=== PATIENT | female | born 1990 | race Two or more races ===

== ENCOUNTER 2017-01-05 08:08 | Inpatient (IN) | payer MEDICAID ==
[~2017-01-05] VITALS: Ht 162.6 cm; Wt 105.0 kg
[~2017-01-05 08:08] MED LIST: IBUP-1484 PO
[2017-01-05] MEDS ORDERED: OXYTOCIN 30U/ 0.9% NaCL 500ML 500 ML IV ONE (08:38)
[2017-01-05] MEDS ORDERED: D5%-LACTATED RINGERS 1,000 ML IV SCH (08:38)
[2017-01-05 08:41] VITALS: BP 115/73
[2017-01-05 09:00] LABS: HEMOGLOBIN 11.1 g/dL (11.7-16.4); WHITE BLOOD COUNT 8.1 x10^3/uL (3.4-10)
[2017-01-05] MEDS ORDERED: ONDANSETRON 2MG/ML, 2ML IVPush PRN ×2 (09:00→19:00)
[2017-01-05] MEDS ORDERED: FENTANYL PF 100 MCG/2ML IV PRN (09:00)
[2017-01-05] MEDS ORDERED: PLEASE ENTER HEIGHT AND WEIGHT MC SCH (09:00)
[2017-01-05] MEDS ORDERED: FENTANYL PF 100 MCG/2ML IVPush PRN (09:00)
[2017-01-05] MEDS ORDERED: TERBUTALINE 1 MG/ML, 1ML IVPush PRN (09:00)
[2017-01-05] MEDS ORDERED: PREN-3 PO (09:06)
[2017-01-05] MEDS ORDERED: MISOPROSTOL 25 MCG TABLET ONE ×2 (09:40→13:38)
[2017-01-05] MEDS ORDERED: MISOPROSTOL 25 MCG TABLET VG PRN (10:00)
[2017-01-05] MEDS ORDERED: NEWBORN KIT ONE (10:33)
[2017-01-05] MEDS ORDERED: LIDOCAINE 1%, 20ML ONE (10:33)
[2017-01-05] MEDS ORDERED: MISOPROSTOL 200 MCG TABLET ONE (13:38)
[2017-01-05] MEDS: LACTATED RINGERS 1,000 ML IV SCH ×2 (16:13→16:59)
[2017-01-05] MEDS ORDERED: BUPIVACAINE 0.25% ONE (16:30)
[2017-01-05] MEDS ORDERED: FENTANYL/BUPIV./NS/PF 250 ML EPIDCONT ONE (16:30)
[2017-01-05] MEDS ORDERED: LIDOCAINE/PF 1.5%-EPI 1:200K, 30ML ONE (16:33)
[2017-01-05] MEDS ORDERED: OXYTOCIN 30U/ 0.9% NaCL 500ML 500 ML ONE ×2 (17:43→22:18)
[2017-01-05] MEDS ORDERED: NALOXONE 0.4 MG/ML, 1ML IVPush PRN (19:00)
[2017-01-05] MEDS ORDERED: LACTATED RINGERS 1,000 ML IVBOLUS PRN (19:00)
[2017-01-05] MEDS ORDERED: FENTANYL/BUPIV./NS/PF 250 ML EPIDCONT SCH (19:00)
[2017-01-05] MEDS ORDERED: DIPHENHYDRAMINE 50 MG/ML, 1ML IVPush PRN (19:00)
[2017-01-05] MEDS ORDERED: LACTATED RINGERS 1,000 ML IV SCH (19:00)
[2017-01-05] MEDS ORDERED: EPHEDRINE 50 MG/ML, 1ML IVPush PRN (19:00)
[2017-01-05] MEDS ORDERED: OXYTOCIN 30U/ 0.9% NaCL 500ML 500 ML IV PRN (22:16)
[2017-01-06] MEDS ORDERED: OXYTOCIN 30U/ 0.9% NaCL 500ML 500 ML ONE (05:35)
[2017-01-06] MEDS ORDERED: OXYTOCIN 30U/ 0.9% NaCL 500ML 500 ML IV SCH ×2 (05:36)
[2017-01-06] MEDS ORDERED: CALCIUM CARBONATE 500 MG TAB.CHEW PO PRN (06:00)
[2017-01-06] MEDS ORDERED: OXYTOCIN 10 UNITS/ML, 1ML IM PRN (06:00)
[2017-01-06] MEDS ORDERED: OXYcodone IR 5MG TABLET PO PRN (06:00)
[2017-01-06] MEDS ORDERED: MAGNESIUM HYDROXIDE 8%, 30ML UDC PO PRN (06:00)
[2017-01-06] MEDS ORDERED: ACETAMINOPHEN 325 MG TABLET PO PRN (06:00)
[2017-01-06] MEDS ORDERED: ONDANSETRON 2MG/ML, 2ML IV PRN (06:00)
[2017-01-06] MEDS ORDERED: METHYLERGONOVINE 0.2 MG/ML IM PRN (06:00)
[2017-01-06] MEDS ORDERED: IBUPROFEN 800 MG TABLET ONE (06:41)
[2017-01-06] MEDS ORDERED: OXYcodone/APAP 5/325MG TABLET ONE (06:41)
[2017-01-06] MEDS: OXYcodone/APAP 5/325MG TABLET PO PRN ×3 (06:44→20:50)
[2017-01-06] MEDS: IBUPROFEN 800 MG TABLET PO PRN ×2 (06:44→14:52)
[2017-01-06 07:05] VITALS: BP 109/64
[2017-01-06] MEDS: PRENATAL VIT/IRON/FA 1 EACH TABLET PO SCH (09:00)
[2017-01-06 12:00] VITALS: BP 116/70
[2017-01-06 16:00] VITALS: BP 110/64
[2017-01-06 20:06] LABS: HEMATOCRIT 26.7 % (34.6-47.8); HEMOGLOBIN 8.9 g/dL (11.7-16.4); WHITE BLOOD COUNT 12.5 x10^3/uL (3.4-10)
[2017-01-06 20:40] VITALS: BP 102/58
[2017-01-06] MEDS: DOCUSATE 100 MG CAPSULE PO PRN (20:50)
[2017-01-07 00:05] VITALS: BP 99/53
[2017-01-07] MEDS: IBUPROFEN 800 MG TABLET PO PRN ×2 (00:12→07:56)
[2017-01-07 03:45] VITALS: BP 90/57
[2017-01-07] MEDS: OXYcodone/APAP 5/325MG TABLET PO PRN ×2 (03:47→07:56)
[2017-01-07] MEDS ORDERED: OXYC-302 PO (06:45)
[2017-01-07] MEDS ORDERED: IBUP-1222 PO (06:47)
[2017-01-07] MEDS ORDERED: FERR325T18 PO (06:48)
[2017-01-07] MEDS ORDERED: FERR-36 PO (06:48)
[2017-01-07] MEDS ORDERED: DOCU-131 PO (06:49)
[2017-01-07 07:44] VITALS: BP 111/71
[2017-01-07] MEDS: PRENATAL VIT/IRON/FA 1 EACH TABLET PO SCH (07:56)
[2017-01-07] MEDS: DOCUSATE 100 MG CAPSULE PO PRN (07:57)
== END 2017-01-07 14:03 | disposition home or self-care (01) | DRG 775 ==
LOC: LDIP 08:08 → 2NW 01-06 08:37
PROVIDERS: ADMIT Obstetrics & Gynecology; ATTEND Obstetrics & Gynecology
PROC: 10E0XZZ Delivery of Products of Conception, External Approach (ICD-10-PCS; principal; 2017-01-06)
PROC: 3E0R3BZ Introduction of Anesthetic Agent into Spinal Canal, Percutaneous Approach (ICD-10-PCS; 2017-01-06)
PROC: 00HU33Z Insertion of Infusion Device into Spinal Canal, Percutaneous Approach (ICD-10-PCS; 2017-01-06)
DX: O80 Encounter for full-term uncomplicated delivery (principal); Z37.0 Single live birth; Z3A.40 40 weeks gestation of pregnancy
CPT/HCPCS: 36415; 59200; 85025; 86850; 86900; J3490; J2590; J3010; J7120

== ENCOUNTER 2018-09-05 14:51 | Inpatient (IN) | payer BC ==
[~2018-09-05] VITALS: Ht 162.6 cm; Wt 92.0 kg
[~2018-09-05 14:51] MED LIST changes: +DOCU-131 PO; +FERR-51 PO; +FERR325T18 PO; +IBUP-1222 PO; +OXYC-302 PO; +PREN-3 PO
[2018-09-05 15:34] VITALS: BP 112/62
[2018-09-05] MEDS ORDERED: OXYTOCIN 30U/ 0.9% NaCL 500ML 500 ML IV PRN (15:56)
[2018-09-05] MEDS ORDERED: D5%-LACTATED RINGERS 1,000 ML IV SCH (15:56)
[2018-09-05] MEDS ORDERED: LACTATED RINGERS 1,000 ML IV SCH (15:56)
[2018-09-05] MEDS ORDERED: OXYTOCIN 30U/ 0.9% NaCL 500ML 500 ML IV ONE (15:56)
[2018-09-05] MEDS ORDERED: FENTANYL PF 100 MCG/2ML IVPush PRN (16:00)
[2018-09-05] MEDS ORDERED: MISOPROSTOL 200 MCG TABLET PR PRN (16:00)
[2018-09-05] MEDS ORDERED: ACETAMINOPHEN 325 MG TABLET PO PRN (16:00)
[2018-09-05] MEDS ORDERED: MISOPROSTOL 200 MCG TABLET VG SCH (16:00)
[2018-09-05] MEDS ORDERED: ONDANSETRON 2MG/ML, 2ML IVPush PRN (16:00)
[2018-09-05] MEDS ORDERED: METOCLOPRAMIDE 5 MG/ML, 2ML IVPush PRN (16:00)
[2018-09-05] MEDS ORDERED: OXYcodone IR 5MG TABLET PO PRN ×2 (16:00)
[2018-09-05] MEDS ORDERED: RHOGAM FROM BLOOD BANK 1 NOTE EA IM/IV PRN (16:00)
[2018-09-05] MEDS ORDERED: MISOPROSTOL 200 MCG TABLET ONE ×2 (16:27→17:32)
[2018-09-05 16:35] LABS: BASOPHILS # (AUTO) 0.01 x10^3/uL (0-0.1); BASOPHILS % (AUTO) 0 % (0-1); EOSINOPHILS # (AUTO) 0.02 x10^3/uL (0-0.4); EOSINOPHILS % (AUTO) 0 % (1-7); LYMPHOCYTES # (AUTO) 1.56 x10^3/uL (1-3.4); LYMPHOCYTES % (AUTO) 23 % (22-44); MD NO; MEAN CORPUSCULAR HEMOGLOBIN 29.4 pg (27.0-34.8); MEAN CORPUSCULAR VOLUME 89.1 fL (80-100); MONOCYTES # (AUTO) 0.33 x10^3/uL (0.2-0.8); MONOCYTES % (AUTO) 5 % (2-9); NEUTROPHILS # (AUTO) 4.97 x10^3/uL (1.8-6.8); NEUTROPHILS % (AUTO) 72 % (42-75); PLATELET COUNT 241 x10^3/uL (130-400); RED CELL DISTRIBUTION WIDTH 15.2 % (9.6-15.2)
[2018-09-05] MEDS ORDERED: LIDOCAINE 1%, 20ML ONE (17:32)
[2018-09-05] MEDS ORDERED: OXYTOCIN 30U/ 0.9% NaCL 500ML 500 ML ONE ×2 (17:32→23:15)
[2018-09-05 17:36] LABS: AMPHETAMINE SCREEN, URINE Negative (Negative); BARBITURATE SCREEN, URINE Negative (Negative); BENZODIAZEPINE SCREEN, URINE Negative (Negative); CANNABINOID SCREEN, URINE Negative (Negative); COCAINE SCREEN, URINE Negative (Negative); METHADONE SCREEN, URINE Negative (Negative); OPIATE SCREEN, URINE Negative (Negative)
[2018-09-06] MEDS ORDERED: ZOLPIDEM 5MG TABLET ONE (00:26)
[2018-09-06] MEDS ORDERED: IBUPROFEN 600 MG TABLET ONE ×3 (00:26→07:34)
[2018-09-06] MEDS: IBUPROFEN 600 MG TABLET PO PRN ×2 (00:29→07:32)
[2018-09-06] MEDS ORDERED: ZOLPIDEM 5MG TABLET PO PRN (00:30)
[2018-09-06 07:15] VITALS: BP 102/56
[2018-09-06] MEDS ORDERED: OXYcodone IR 5MG TABLET ONE (07:22)
[2018-09-06] MEDS ORDERED: SIMETHICONE 125 MG CHEW TAB PO ONE (08:00)
== END 2018-09-06 10:14 | disposition home or self-care (01) | DRG 806 ==
LOC: LDIP 14:51
PROVIDERS: ADMIT Obstetrics & Gynecology; ATTEND Obstetrics & Gynecology
PROC: 10E0XZZ Delivery of Products of Conception, External Approach (ICD-10-PCS; principal; 2018-09-05)
PROC: 3E0P7VZ Introduction of Hormone into Female Reproductive, Via Natural or Artificial Opening (ICD-10-PCS; 2018-09-05)
DX: O03.9 Complete or unspecified spontaneous abortion without complication (principal); O36.4XX0 Maternal care for intrauterine death, not applicable or unspecified; Z37.1 Single stillbirth; Z3A.16 16 weeks gestation of pregnancy
CPT/HCPCS: 36415; 80307; 85025; 86850; 86900; 88305; G0378; J2590; J7120